=== PATIENT | female | born 1990 | race Hispanic/Latino ===

== ENCOUNTER 2018-08-09 13:19 | Day surgery (SDC) | payer MEDICAID ==
[2018-08-09 13:31] VITALS: BMI 41.0
[2018-08-09 13:51] LABS: BASO # 0.05 K/mm3 (0.0-2.0); BASO % 0.4 % (0.0-3.0); EOS # 0.1 (0.0-0.7); EOS % 0.6 % (1.5-5.0); HEMOGLOBIN 13.2 g/dL (12.0-16.0); LYMPH # 3.5 (1.2-3.4); LYMPH % 24.6 % (22.0-35.0); MEAN CORPUSCULAR HEMOGLOBIN 28.3 pg (25.0-35.0); MEAN CORPUSCULAR HGB CONC 33.2 g/dl (31.0-37.0); MEAN PLATELET VOLUME 10.9 fl (7.0-11.0); MONO # 0.9 (0.1-0.6); RBC 4.67 10^6/uL (3.5-6.1); RED CELL DISTRIBUTION WIDTH 13.2 % (11.5-14.5); WHITE BLOOD COUNT 14.2 10^3/uL (4.5-11.0)
[2018-08-09 14:01] LABS: BLOOD UREA NITROGEN 10 mg/dL (7-21); CALCIUM 9.5 mg/dL (8.4-10.5); GFR NON-AFRICAN AMERICAN > 60
[2018-08-09] MEDS ORDERED: Propofol 10 mg/ml Inj (20 ML) ONE (14:08)
[2018-08-09] MEDS ORDERED: Midazolam 2 MG/2 ML VIAL ONE (14:08)
[2018-08-09] MEDS ORDERED: Lidocaine PF 2% (5 ml) Inj (For Cardiac Arrhy) ONE (14:09)
[2018-08-09] MEDS ORDERED: Sevoflurane - Inhalation Anesthetic Liq (250 ml) ONE (14:20)
[2018-08-09] MEDS ORDERED: HYDROmorphone 1 mg/ml ISec IVP PRN (14:47)
[2018-08-09] MEDS ORDERED: HYDROmorphone 1 mg/ml ISec ONE (14:50)
[2018-08-09] MEDS ORDERED: Lactated Ringer's 1,000 ML IV SCH (15:00)
[2018-08-09 15:58] VITALS: RESP 20; TEMP 98.1; O2SAT 95
[2018-08-09 17:04] VITALS: BP 126/76; PULSE 86
--- NOTE | 2018-08-10 00:35 | OP ---
PROCEDURE DATE: 08/09/2018 PREOPERATIVE DIAGNOSES: History of polycystic ovaries, irregular menses, and persistent menorrhagia. POSTOPERATIVE DIAGNOSES: History of polycystic ovaries, irregular menses, and persistent menorrhagia. PROCEDURE PERFORMED: Hysteroscopy, dilatation and curettage. SURGEON: Warren Cedeno MD TYPE OF ANESTHESIA: General LMA. ESTIMATED BLOOD LOSS: Minimal. DESCRIPTION OF PROCEDURE: As follows: After an informed consent was obtained and signed by the patient, and the entire consent was translated with a mine development engineer, the patient signed her consent. All questions were answered. The patient was brought into the operating room. General LMA anesthesia was induced. The patient was prepped and draped in the usual sterile fashion. Examination under anesthesia revealed uterus that was approximately 8 to 9 weeks in size and both adnexa were negative. Weighted speculum was inserted into the vaginal vault. The anterior lip of the cervix was visualized and grasped with a single-tooth tenaculum. Endocervical canal was visualized, dilated and a diagnostic scope was inserted. Visualization of the cavity revealed multiple clots. The hysteroscope was removed. A curettage of endometrial cavity was then taken and all specimen was sent to pathology for examination. Bleeding was minimizing and at this timeframe, the procedure was terminated. The patient was awakened and sent to the recovery room in stable condition. Warren Cedeno MD
== END 2018-08-09 17:00 | disposition home or self-care (01) ==
LOC: SDS 13:19
PROVIDERS: ATTEND Obstetrics & Gynecology Gynecology
DX: N92.0 Excessive and frequent menstruation with regular cycle (principal); E28.2 Polycystic ovarian syndrome
CPT/HCPCS: 36415; 58558; 80048; 84703; 85025; 88305; J1170; J2250; J2704; J3010; J7120 ×2